=== PATIENT | male | born 1995 | race Caucasian/White ===

== ENCOUNTER 2019-10-23 20:55 | Emergency (ER) | payer OTHER ==
[2019-10-23] MEDS ORDERED: DIPHTH,PERTUSS(ACELL),TET 0.5 ML DISP.SYRIN IM ONE ×2 (21:11→22:44)
--- NOTE | 2019-10-23 21:11 | PDOC ---
Rapid Medical Evaluation Chief Complaint: Laceration Time Seen by Provider: 10/23/19 21:07 Medical Evaluation: 10/23/19 21:07 I have performed a brief in-person evaluation of this patient. The patient presents with a chief complaint of:left thumb laceration - using a paper box cutter Pertinent physical exam findings: 2cm lac to IP joint left thumb, , able to bend thumb I have ordered the following: Boostrix The patient will proceed to the ED for further evaluation. Discharge Disposition - Diagnosis Laceration of finger - Referrals - Patient Instructions - Post Discharge Activity
[2019-10-23 21:14] VITALS: BP 161/83; PULSE 95; TEMP 98; BMI 39.9
--- NOTE | 2019-10-23 22:45 | PDOC ---
History of Present Illness - General Chief Complaint: Laceration Stated Complaint: CUT LT HAND Time Seen by Provider: 10/23/19 21:07 - History of Present Illness Initial Comments: 10/23/19 22:44 24-year-old male without comorbidities presents for evaluation of a laceration on his left thumb which occurred while using a box feeder. Past History - Past Medical History Allergies/Adverse Reactions: Allergies Allergy/AdvReac Type Severity Reaction Status Date / Time No Known Allergies Allergy Verified 10/23/19 21:12 CVA: No COPD: No - Psycho Social/Smoking Cessation Hx Smoking History: Current every day smoker Number of Cigarettes Smoked Daily: 20 Information on smoking cessation initiated: No Hx Alcohol Use: No Drug/Substance Use Hx: No Review of Systems - Review of Systems Musculoskeletal: Yes: See HPI *Physical Exam - Vital Signs Last Vital Signs Temp Pulse Resp BP Pulse Ox 98 F 95 H 20 161/83 100 10/23/19 21:12 10/23/19 21:12 10/23/19 21:12 10/23/19 21:12 10/23/19 21:12 - Physical Exam Comments: 10/23/19 22:44 There is about a 3 cm laceration on the dorsum of the left thumb wrapping around ulnarly at the MCP J. Extensor function is 5 out of 5. No gross sensorimotor deficits neurovascular intact Medical Decision Making - Medical Decision Making 10/23/19 22:44 Aseptically 6 cc of 1% lidocaine without epinephrine was used to anesthetize the area. 4-0 nylon in a simple interrupted fashion 5 simple sutures were placed. Prior to closure the wound was thoroughly explored explored to its base in a bloodless field with no light and identification of a foreign body and then the wound was copiously irrigated before was closed a dry sterile dressing was placed Discharge - Discharge Information Problems reviewed: Yes Clinical Impression/Diagnosis: Laceration of finger Condition: Stable Disposition: HOME - Admission No - Follow up/Referral Referrals: Reid Valentin MD [Staff Physician] - - Patient Discharge Instructions Additional Instructions: Please keep the dressing on for the next 48 hours. After 48 hours you may remove the dressing wash the area with soap and water and leave it open to air. If you must work please cover the area with a dry sterile dressing such as a large Band-Aid. Keep the area open to air as much as possible. Return to the emergency room for any worsening symptoms or concern for infection such as redness, swelling, increasing pain, or drainage. Other than that sutures out in 14 days Tylenol and Motrin as directed for pain. - Post Discharge Activity
== END 2019-10-23 22:45 | disposition home or self-care (01) ==
LOC: JERFT 20:55
PROC: 3E0234Z Introduction of Serum, Toxoid and Vaccine into Muscle, Percutaneous Approach (ICD-10-PCS; principal; 2019-10-23)
PROC: 0HQGXZZ Repair Left Hand Skin, External Approach (ICD-10-PCS; 2019-10-23)
DX: S61.012A Laceration without foreign body of left thumb without damage to nail, initial encounter (principal); W27.8XXA Contact with other nonpowered hand tool, initial encounter; Y93.89 Activity, other specified; Y92.512 Supermarket, store or market as the place of occurrence of the external cause; Y99.0 Civilian activity done for income or pay
CPT/HCPCS: 90715; 99282-25